=== PATIENT | male | born 1980 | race African-American/Black ===

== ENCOUNTER 2024-04-09 21:40 | Emergency (ER) | payer MEDICAID, OTHER ==
[~2024-04-09] VITALS: Ht 180.3 cm; Wt 91.0 kg
[~2024-04-09 21:40] MED LIST: MINO2.5T2 MT; NIFE-32 MT
[2024-04-09] MEDS ORDERED: CALCIUM GLUCONATE 1GM PREMIX 50 ML IV ONE (22:00)
[2024-04-09] MEDS: SODIUM CHLORIDE 0.9% 1,000 ML IV ONE (22:00)
[2024-04-09 22:06] VITALS: O2SAT 100
[2024-04-09] MEDS: LABETALOL 5MG/ML 4ML INJ IV ONE (23:16)
[2024-04-09] MEDS: CALCIUM GLUCONATE 1GM PREMIX 50 ML IV NR (23:53)
[2024-04-10 01:37] LABS: BASOPHILS % 0.3 % (0.0-2.0); HEMATOCRIT. 42.3 % (42.0-52.0); HEMOGLOBIN. 14.4 g/dL (14.0-18.0); LYMPHOCYTES % 4.9 % (20.0-50.0); MEAN CORPUSCULAR HGB CONC 33.9 g/dL (31.0-37.0); MEAN CORPUSCULAR VOLUME 88.5 fL (80.0-94.0); MEAN PLATELET VOLUME 7.7 fl (7.4-10.4); MONOCYTES % 8.2 % (2.0-8.0); NEUTROPHILS % 86.6 % (40.0-76.0); PLATELET 255 x1000/uL (130-400); RED BLOOD CELL COUNT 4.78 mill/uL (4.7-6.1); RED CELL DISTRIBUTION WIDTH 13.5 % (11.6-14.6); WHITE BLOOD COUNT 9.4 x1000/uL (4.5-11.0)
[2024-04-10 01:41] LABS: DIFFERENTIAL COMMENT 1
[2024-04-10 01:44] LABS: CHLORIDE 105 mEq/L (98-107); POTASSIUM 3.5 mEq/L (3.5-5.1); SODIUM 137 mEq/L (136-145)
[2024-04-10 01:45] LABS: CALCIUM 9.2 mg/dL (8.7-10.4); CARBON DIOXIDE 22 mEq/L (21-32)
[2024-04-10 01:50] LABS: CREATININE 1.3 mg/dL (0.6-1.3); GLUCOSE 113 mg/dL (70-105); TROPONIN I HIGH SENSITIVITY 14 ng/L (3.0-53); UREA NITROGEN BLOOD 9 mg/dL (9-23)
[2024-04-10 01:52] LABS: ALANINE AMINOTRANSFERASE 11 IU/L (10-49); ALBUMIN 4.4 g/dL (3.2-4.8); ASPARTATE AMINOTRANSFERASE 15 IU/L (<34); BILIRUBIN DIRECT 0.5 mg/dL (<=3.0); BILIRUBIN TOTAL 1.5 mg/dL (0.1-1.0)
[2024-04-10] MEDS: IOHEXOL-350 100 ML BOTTLE ONE (09:59)
[2024-04-10] MEDS: HYDRALAZINE 20MG/ML VIAL IV PRN (13:38)
[2024-04-10 14:54] VITALS: BP 205/112; PULSE 119; RESP 22; TEMP 36.89184; O2SAT 98
[2024-04-10] MEDS ORDERED: CLONIDINE 0.1MG TABLET PO PRN (15:00)
== END 2024-04-10 15:45 | disposition left against medical advice (07) ==
LOC: ER 21:40 → EDBEDREQTM 04-10 01:30 → EDBEDREQDT 04-10 01:30 → EDBEDREQ 04-10 01:30 → ER 04-10 15:45 → CANBEDREQ 04-10 15:49
DX: R00.0 Tachycardia, unspecified (principal); I10 Essential (primary) hypertension; Z88.0 Allergy status to penicillin; Z79.899 Other long term (current) drug therapy
CPT/HCPCS: 36415; 71045; 93005; 96361; 96365; 96375 ×2; 99291; 80076; 80048; 83690; 85025; 84484; 71275; J0610; J3490; J7030; Q9967; J0360

== ENCOUNTER 2025-04-09 14:25 | Emergency (ER) | payer MEDICAID, OTHER ==
[~2025-04-09] VITALS: Ht 177.8 cm; Wt 89.0 kg
[2025-04-09 14:33] VITALS: O2SAT 98
[2025-04-09 15:53] LABS: BASOPHILS % 0.7 % (0.0-2.0); EOSINOPHILS % 0.6 % (0.0-5.0); HEMATOCRIT. 49.5 % (42.0-52.0); HEMOGLOBIN. 16.5 g/dL (14.0-18.0); LYMPHOCYTES % 14.7 % (20.0-50.0); MEAN PLATELET VOLUME 7.7 fl (7.4-10.4); MONOCYTES % 11.3 % (2.0-8.0); NEUTROPHILS % 72.7 % (40.0-76.0); PLATELET 309 x1000/uL (130-400); RED BLOOD CELL COUNT 5.59 mill/uL (4.7-6.1); RED CELL DISTRIBUTION WIDTH 14.0 % (11.6-14.6)
[2025-04-09 16:03] LABS: INR 1.0
[2025-04-09 16:07] LABS: CREATININE 1.4 mg/dL (0.6-1.3); UREA NITROGEN BLOOD 11 mg/dL (9-23)
[2025-04-09 16:08] LABS: ASPARTATE AMINOTRANSFERASE 17 IU/L (<34)
[2025-04-09 16:09] LABS: BILIRUBIN DIRECT 0.3 mg/dL (<=3.0); BILIRUBIN TOTAL 1.1 mg/dL (0.1-1.0); PROTEIN TOTAL 8.1 g/dL (6.0-8.3); TROPONIN I HIGH SENSITIVITY < 4 ng/L (3.0-53)
[2025-04-09 21:33] VITALS: BP 155/108; PULSE 89; RESP 17; TEMP 37; O2SAT 98
[2025-04-09] MEDS ORDERED: IOHEXOL-350 100 ML BOTTLE ONE (22:50)
== END 2025-04-09 22:04 | disposition short-term general hospital (02) ==
LOC: ER 14:25 → CMPBEDREQ 04-10 07:46
DX: R00.0 Tachycardia, unspecified (principal); I10 Essential (primary) hypertension; R06.02 Shortness of breath; Z88.0 Allergy status to penicillin; Z79.899 Other long term (current) drug therapy
CPT/HCPCS: 99285; 74174; 71275; 71045; 80076; 80048; 83880; 83735; 85025; 85610; 85730; 84484; 36415; 93005; Q9967